=== PATIENT | male | born 2000 | race Caucasian/White ===

== ENCOUNTER 2023-09-17 19:02 | Emergency (ER) | payer BC, SELFPAY ==
[2023-09-17 20:02] VITALS: BP 121/80; PULSE 74; RESP 20; TEMP 37.1; O2SAT 97; BMI 26.8
--- NOTE | 2023-09-17 21:03 | ED_ITS ---
HPI - General Adult General Chief complaint: Unspecified Complaint, Adult Stated complaint: jaw swelling/pain Time Seen by Provider: 09/17/23 20:40 History of Present Illness HPI narrative: This 23-year-old male comes in with his father because of some pain in the submental area of his neck and the floor of his mouth. He states that he notices pain when he yawns and has had some symptoms like this occasionally in the past but this is more severe recently. He states that he vomited yesterday and since then has been having pain in this area. He states that his teeth are aligned properly and he does not report any tenriism or mandibular joint symptoms. He has not had any fevers. Related Data Home Medications ?Medication ?Instructions ?Recorded ?Confirmed amoxicillin 875 mg-potassium 1 tab PO BID 01/28/23 01/28/23 clavulanate 125 mg tablet ondansetron 4 mg disintegrating 4 mg PO Q8H PRN 01/28/23 01/28/23 tablet Allergies Allergy/AdvReac Type Severity Reaction Status Date / Time No Known Drug Allergies Allergy Verified 01/28/23 16:11 Review of Systems Status of ROS: Reports: 10 or more systems reviewed and unremarkable except as noted in History and below Narrative: Constitutional: No fevers, no weight gain or loss. Eyes: No discharge. No vision changes. HENT: No congestion, no sore throat, no ear pain. Cardiovascular: No chest pain, no palpitations. Respiratory: No shortness of breath, no wheezes, no cough. Gastrointestinal: No abdominal pain, no vomiting, no diarrhea. Genitourinary: No dysuria, no hematuria. Musculoskeletal: Normal range of motion. Skin: No rashes, no pruritis. Neurological: No dizziness, weakness, sensory change, speech change. Endo/Heme/Allergies: No bruising or bleeding. No polydipsia. Pysch: no suicidality, no anxiety, no insomnia. All other systems reviewed and are negative. [facility] Medical History (Updated 09/17/23 @ 22:09 by Benjie Davis MD) HIV antibody positive ?Z21 - Asymptomatic human immunodeficiency virus [HIV] infection status (ICD- 10) Social History Smoking Status: Never smoker Little interest or pleasure in doing things: several days Feeling down, depressed, or hopeless: more than half the days Exam Narrative: Exam Narrative: Constitutional: Well-developed, well-nourished, no acute distress. HEENT: Normocephalic, atraumatic. There is a tender palpable lump in the submental area of his anterior neck. This is well-defined in its border. Oral exam appears normal. Neck: Normal range of motion. Nontender. Supple. Heart: Intact distal pulses. Lungs: No chest discomfort. No wheezes, rhonchi, or rales. Abdomen: Nontender. Back: Normal range of motion. Extremities: Normal range of motion. No injury. Skin: Intact. No rash. Warm. No erythema or pallor. He has some superficial abrasions on his face. Neurologic: No altered sensation. No weakness. Alert and oriented. Psychiatric: No suicidality. No anxiety or depression. No insomnia. Nursing notes and vitals signs are reviewed. Const: Vital Signs, click to edit/add: Vital Signs - 24 hr 09/17/23 20:02 Temperature 98.8 F Pulse Rate [Left P ulse Oximeter] 74 Respiratory Rate 20 Blood Pressure [Ri ght Upper Arm] 121/80 Pulse Oximetry 97 Oxygen Delivery Me thod Room Air Course Vital Signs Vital signs: Initial Vital Signs Temperature 98.8 F 09/17/23 20:02 Temperature Source Temporal Artery Scan 09/17/23 20:02 Pulse Rate 74 09/17/23 20:02 Respiratory Rate 20 09/17/23 20:02 Blood Pressure 121/80 09/17/23 20:02 Blood Pressure Mean 93 09/17/23 20:02 Blood Pressure Position Sitting 09/17/23 20:02 Pulse Oximetry 97 09/17/23 20:02 Oxygen Delivery Method Room Air 09/17/23 20:02 Vital Signs Temperature 98.8 F 09/17/23 20:02 Pulse Rate 74 09/17/23 20:02 Respiratory Rate 20 09/17/23 20:02 Blood Pressure 121/80 09/17/23 20:02 Pulse Oximetry 97 09/17/23 20:02 Oxygen Delivery Method Room Air 09/17/23 20:02 Temperature 98.8 F 09/17/23 20:02 Pulse Rate 74 09/17/23 20:02 Respiratory Rate 20 09/17/23 20:02 Blood Pressure 121/80 09/17/23 20:02 Pulse Oximetry 97 09/17/23 20:02 Oxygen Delivery Method Room Air 09/17/23 20:02 Medical Decision Making MDM Narrative Medical decision making narrative: This patient comes in reporting discomfort in the submental region of his chin the neck as described above. An IV was established and a CT scan of the soft tissue of the neck is ordered. Results of this test are pending at the end of my shift and the remaining physician here will look after results and proceed accordingly. Lab Data Labs: Lab Results 09/17/23 Range/Units 21:16 WBC 7.75 (4.50-11.00) K/uL RBC 5.96 H (4.30-5.90) m/uL Hgb 16.1 (13.5-17.5) gm/dL Hct 48.9 (37.0-53.0) % MCV 82 (80-100) fL MCH 27 (26-34) pg MCHC 33 (32-36) gm/dL RDW Coeff of Redd 12.4 (11.5-15.5) % Plt Count 344 (140-440) K/uL Neut % (Auto) 59.8 (42.0-72.0) % Lymph % (Auto) 31.2 (20-44) % Faulk % (Auto) 6.8 (0.0-11.0) % Eos % (Auto) 1.8 (0.0-7.0) % Baso % (Auto) 0.3 (0.0-3.0) % Neut # (Auto) 4.63 (1.7-7.0) K/uL Lymph # (Auto) 2.42 (0.90-2.90) K/uL Faulk # (Auto) 0.50 (0.00-0.90) K/UL Eos # (Auto) 0.14 (0.00-0.50) K/uL Baso # (Auto) 0.02 (0.00-0.30) K/uL Abs Immat Gran (auto) 0.01 (0.00-0.30) K/uL Imm/Tot Granulo (auto) 0.1 % Sodium 136 (135-149) mmol/L Potassium 4.1 (3.6-5.1) mmol/L Chloride 102 (96-114) mmol/L Carbon Dioxide 25 (20-32) mmol/L Anion Gap 9 (7-15) mEq/L BUN 13 (5-24) mg/dL Creatinine 0.9 (0.5-1.5) mg/dL Estimated Creat Clear 137.12 Estimated GFR 124 ml/min Glucose 85 (60-115) mg/dL Calcium 9.6 (8.4-10.6) mg/dL Discharge Plan Discharge Clinical Impression: Acute neck pain Prescriptions: No Action ondansetron 4 mg tablet,disintegrating 4 mg PO Q8H PRN amoxicillin-pot clavulanate 875-125 mg tablet 1 tab PO BID Follow Up/Referrals: Red Tim MD [Primary Care Provider] -
--- NOTE | 2023-09-17 21:03 | CRLHL7_ITS ---
For Patients: As a result of the Century Cures Act, medical imaging exams and procedure reports are released immediately into your electronic medical record. You may view this report before your referring provider. If you have questions, please contact your health care provider. INDICATION: Submental swelling. TECHNIQUE: CT soft tissue of the neck was acquired with 94 cc Isovue 370 IV contrast. COMPARISON: None. FINDINGS: Skull base: Unremarkable. Pharynx/Larynx/Trachea: Epiglottis is normal. Airway is patent. Adjacent soft tissues are normal. Salivary glands: Unremarkable. Thyroid gland: Tiny 2 mm nodule in the right thyroid lobe. Lymph nodes: Enlarged level 1A, 2, and 3 lymph nodes. Vessels: Unremarkable for age. Bones: Unremarkable for age. Misc: Mild lower facial subcutaneous stranding. No mass or fluid collection. Lung apices: Unremarkable. IMPRESSION: 1. Enlarged level 1A, 2, and 3 lymph nodes, nonspecific possibly reactive however underlying lymphoproliferative disorder or less likely metastatic disease is not excluded. Consider follow-up to resolution. 2. Mild lower facial subcutaneous stranding, nonspecific correlate for cellulitis. 3. No mass or fluid collection. Please note that all CT scans at this facility use dose modulation, iterative reconstruction, and/or weight-based dosing when appropriate to reduce radiation dose to as low as reasonably achievable. Dictated by Samson Macias MD @ 09/17/2023 10:27:24 PM (Electronically Signed)
--- OUTSIDE RECORDS SUMMARY | 2023-09-17 21:20 | XMS_ITS | Clinical Summary ---
Author Organization [facility] [facility] Address [place], [place] [address] Care Team Providers Care Insurance Service Representative Name Role Phone Red Tim MD Primary Care Provider [phone] Allergies No known active allergies Social History Tobacco Use Types Packs/Day Years Used Date Smoking Tobacco: Never Assessed Sex and Gender Information Value Date Recorded Sex Assigned at Not on file Gender Identity Not on file Sexual Orientation Not on file Last Filed Vital Signs Vital Sign Reading Time Taken Comments Blood Pressure 137/79 01/25/2023 7:51 PM OIL PIPE INSPECTOR HELPER Pulse 66 01/25/2023 7:51 PM OIL PIPE INSPECTOR HELPER Temperature 36.1 ??C (97 ??F) 01/25/2023 4:32 PM OIL PIPE INSPECTOR HELPER Respiratory Rate 18 01/25/2023 4:32 PM OIL PIPE INSPECTOR HELPER Oxygen Saturation 97% 01/25/2023 7:51 PM OIL PIPE INSPECTOR HELPER Inhaled Oxygen Concentration - - Weight 86.6 kg (191 lb) 01/25/2023 4:32 PM OIL PIPE INSPECTOR HELPER Height 182.9 cm (6') 01/25/2023 4:32 PM OIL PIPE INSPECTOR HELPER Body Mass Index 25.9 01/25/2023 4:32 PM OIL PIPE INSPECTOR HELPER Plan of Treatment Not on file Care Teams Insurance Service Representative Relationship Specialty Start Date End Date Red Tim MD [address] [place] [phone] PCP - General Family Practice 01/25/23
--- OUTSIDE RECORDS SUMMARY | 2023-09-17 21:20 | XMS_ITS | Clinical Summary ---
Author Organization [facility] Address [address] [place] [phone] Phone Care Team Providers Care Veterinary Pathologist Name Role Phone Unavailable Primary Care Provider Unavailabl e Social History Tobacco Use Types Packs/Day Years Used Date Smoking Tobacco: Never Assessed Sex and Gender Information Value Date Recorded Sex Assigned at Not on file Gender Identity Not on file Sexual Orientation Not on file Plan of Treatment Health Maintenance Due Date Last Done Comments Influenza Vaccine (#1) 2023
--- OUTSIDE RECORDS SUMMARY | 2023-09-17 21:20 | XMS_ITS | Clinical Summary ---
Author Organization [facility] Address [address] [place] [address] Care Team Providers Care Kiln Operator Name Role Phone Larissa Bradshaw D.O. Primary Care Provider Source Comments Patient records contain information from all sites at [facility]. For routine questions regarding patient records, call [phone] during business hours, M-F 8:00 AM - 5:00 PM Central Time. 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 from Last 3 Months Social History Tobacco Use Types Packs/Day Years Used Date Smoking Tobacco: Never Smokeless Tobacco: Never Tobacco Cessation:Counseling Given: Not Answered Alcohol Use Standard Drinks/Week Comments Yes 0 (1 standard drink = 0.6 oz pur e alcohol) Nutrition Answer Date Recorded Nutrition: EVOO Fat Source Unknown 01/25 Nutrition: Servings of Fruits/Vegetables per Day Not on file 01/25/2023 Dental Answer Date Recorded Dental: Regular Dentist Unknown 01/26/20 Sex and Gender Information Value Date Recorded Sex Assigned at Not on file Gender Identity Not on file Sexual Orientation Not on file Last Filed Vital Signs Vital Sign Reading Time Taken Comments Blood Pressure 127/91 02/12/2023 4:00 PM STUDENT SERVICES DIRECTOR Pulse 83 02/12/2023 4:00 PM STUDENT SERVICES DIRECTOR Temperature 36.3 ??C (97.3 ??F) 02/12/2023 4:00 PM CS T Respiratory Rate 16 02/12/2023 4:00 PM STUDENT SERVICES DIRECTOR Oxygen Saturation 100% 02/12/2023 4:00 PM STUDENT SERVICES DIRECTOR Inhaled Oxygen Concentration - - Weight 83.2 kg (183 lb 6.8 oz) 02/12/2023 1:56 P M STUDENT SERVICES DIRECTOR Height - - Body Mass Index - - Plan of Treatment Upcoming Encounters Date Type Department Care Team (Late st Contact Info) Description 09/26/2023 3:30 PM CDT Comprehensive Visit Department of Family Medicine, [facility], in [place], [place] [address] [phone] Larissa Bradshaw D.O. [address] [place] [phone] Health Maintenance Due Date Last Done Comments HIV Screening 2001 Hepatitis C Screening 2001 Tobacco Cessation counseling 2001 Depression Screening (Annual PHQ-2) 02/25/2023 Influenza Vaccine (#1) 2023 , 01/12/2021, 01/05/2020, Additional history exists DTaP,Tdap,and Td Vaccines (8 - Td or Tdap) 06/18/2032 06/18/2022, 05/08/2012, 04/04/2005, Additional history exists Hepatitis B Vaccines Completed 07/08/2002, 2001, 2001 Meningococcal Vaccine Aged Out 05/08/2012 No primo katherine eligible based on patient's age to complete this topic HPV Vaccines Completed 04/29/2014, 11/25, 10/21/2013, Additional history exists COVID-19 Vaccine Completed 01/11/2023, , 12/26/2020, Additional history exists Pneumococcal vaccine (0-64 years) Aged Out No longer eligible based on patient's age to complete this topic Advance Directives For more information, please contact: [phone] * Full Code (Latest Code Status on File) Date Activated Date Inactivated Comments 02/12/2023 1:41 PM 02/13/2023 6:23 AM Question Answer Comments Full Code: Not Discussed Due to: Not medically appropriate Care Teams Kiln Operator Relationship Specialty Start Date End Date Larissa Bradshaw D.O. [address] [place] [phone] PCP - General Family Medicine 01/29/23
--- OUTSIDE RECORDS SUMMARY | 2023-09-17 21:20 | XMS_ITS | Encounter Summary ---
Author Organization [facility] Address [address] [place] [address] Care Team Providers Care Early Childhood Education Coordinator Name Role Phone Larissa Bradshaw D.O. Primary Care Provider Encounter Details Date Type Department Care Team (Late Contact Info) Description 09/17/2023 Patient Self-Triage [facility] Symptom Channeler Outsole, Provider Social History Tobacco Use Types Packs/Day Years Used Date Smoking Tobacco: Never Smokeless Tobacco: Never Alcohol Use Standard Drinks/Week Comments Yes 0 [...] on file Sexual Orientation Not on file documented as of this encounter Plan of Treatment Upcoming Encounters Date Type Department Care Team (Late Contact Info) Description 09/26/2023 3:30 PM CDT Comprehensive Visit Department of Family Medicine, [facility], in [place], [place] [address] [place] [address] Larissa Bradshaw D.O. [address] [place] [phone] documented as of this encounter Visit Diagnoses Not on filedocumented in this encounter Care Teams Early Childhood Education Coordinator Relationship Specialty Start Date End Date Larissa Bradshaw D.O. [address] [facility] [phone] PCP - General Family Medicine 01/29/23 documented as of this encounter
--- OUTSIDE RECORDS SUMMARY | 2023-09-17 21:20 | XMS_ITS ---
Author Organization [facility] Address [address] [place] [address] Care Team Providers Care Playground Aide Name Role Phone Unavailable Unavailable Unavailable Surgery Details Not on file Complications Check Surgery Details section. Procedure Estimated Blood Loss Check Surgery Details section. Procedure Findings Check Surgery Details section. Procedure Specimens Taken Check Surgery Details section.
--- OUTSIDE RECORDS SUMMARY | 2023-09-17 21:20 | XMS_ITS | Referral Summary ---
Author Organization [facility] Address [address] [place] [address] Care Team Providers Care Managing Principal Name Role Phone Larissa Bradshaw D.O. Primary Care Provider Source Comments Patient records contain information from all sites at [facility]. For routine questions regarding patient records, call [phone] during business hours, M-F 8:00 AM - 5:00 PM Central Time. 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 from Last 3 Months Allergies No known active allergies Medications No known medications Active Problems No known active problems Social History Tobacco Use Types Packs/Day Years [...] Comments Blood Pressure 127/91 02/12/2023 4:00 PM INDIGO VAT TENDER CLOTH Pulse 83 02/12/2023 4:00 PM INDIGO VAT TENDER CLOTH Temperature 36.3 ??C (97.3 ??F) 02/12/2023 4:00 PM CS T Respiratory Rate 16 02/12/2023 4:00 PM INDIGO VAT TENDER CLOTH Oxygen Saturation 100% 02/12/2023 4:00 PM INDIGO VAT TENDER CLOTH Inhaled Oxygen Concentration - - Weight 83.2 kg (183 lb 6.8 oz) 02/12/2023 1:56 P M INDIGO VAT TENDER CLOTH Height - - Body Mass Index - - Plan of Treatment Upcoming Encounters Date Type Department Care Team (Late st Contact Info) Description 09/26/2023 3:30 PM CDT Comprehensive Visit Department of Family Medicine, [facility], in [place], [place] [address] [phone] Larissa Bradshaw D.O. [address] [phone] Advance Directives For more information, please contact: [phone] * Full Code (Latest Code Status on File) Date Activated Date Inactivated Comments 02/12/2023 1:41 PM 02/13/2023 6:23 AM Question Answer Comments Full Code: Not Discussed Due to: Not medically appropriate Care Teams Managing Principal Relationship Specialty Start Date End Date Larissa Bradshaw D.O. [address] [phone] PCP - General Family Medicine 01/29/23
[2023-09-17 21:22] LABS: Basophils Absolute Auto 0.02 K/uL (0.00-0.30); Basophils Percent Auto 0.3 % (0.0-3.0); Eosinophils Absolute Auto 0.14 K/uL (0.00-0.50); Eosinophils Percent Auto 1.8 % (0.0-7.0); Hematocrit 48.9 % (37.0-53.0); Hemoglobin* 16.1 gm/dL (13.5-17.5); Immature Granulocytes Abs Auto 0.01 K/uL (0.00-0.30); Immature Granulocytes Pct Auto 0.1 %; Lymphocytes Absolute Auto 2.42 K/uL (0.90-2.90); Lymphocytes Percent Auto 31.2 % (20-44); Mean Corpuscular HGB Conc 33 gm/dL (32-36); Mean Corpuscular Hemoglobin 27 pg (26-34); Mean Corpuscular Volume 82 fL (80-100); Monocytes Percent Auto 6.8 % (0.0-11.0); Neutrophils Absolute Auto 4.63 K/uL (1.7-7.0); Neutrophils Percent Auto 59.8 % (42.0-72.0); Platelet Count* 344 K/uL (140-440); RDW Coefficient of Variation % 12.4 % (11.5-15.5); Red Blood Count 5.96 m/uL (4.30-5.90); White Blood Count* 7.75 K/uL (4.50-11.00)
[2023-09-17 21:25] LABS: Slide Review Reflex No
[2023-09-17 21:35] LABS: Chloride* 102 mmol/L (96-114)
[2023-09-17 21:36] LABS: Potassium* 4.1 mmol/L (3.6-5.1); Sodium* 136 mmol/L (135-149)
[2023-09-17 21:38] LABS: Creatinine* 0.9 mg/dL (0.5-1.5); Est. Creatinine Clearance* 137.12
[2023-09-17 21:39] LABS: Anion Gap 9 mEq/L (7-15); Blood Urea Nitrogen* 13 mg/dL (5-24); Calcium* 9.6 mg/dL (8.4-10.6); Carbon Dioxide* 25 mmol/L (20-32); Estimated Glomerular Filt Rate 124 ml/min; Glucose* 85 mg/dL (60-115)
== END 2023-09-17 23:26 | disposition home or self-care (01) ==
PROVIDERS: Emergency Medicine Emergency Medical Services; Emergency Provider Family Medicine; PCP Family Medicine
DX: M54.2 Cervicalgia (principal)
CPT/HCPCS: 36415; 70491; 80048; 85025; 99283; 99284; Q9967